=== PATIENT | male | born 1985 | race Caucasian/White ===

== ENCOUNTER 2020-11-12 17:51 | Emergency (ER) | payer OTHER, SELFPAY ==
[2020-11-12 18:07] VITALS: BP 136/66; PULSE 108; RESP 16; TEMP 37; O2SAT 99; BMI 24.3
--- NOTE | 2020-11-12 18:23 | CTR_ITS ---
PROCEDURE INFORMATION: Exam: CT Abdomen And Pelvis With Contrast Exam date and time: 11/12/2020 6:41 PM Age: 35 years old Clinical indication: Abdominal pain; Other: Bilat flank pain, testicular pain, ruq pain; Prior surgery; Surgery type: Umbilical hernia TECHNIQUE: Imaging protocol: Computed tomography of the abdomen and pelvis with contrast. Axial, coronal and sagittal reformatted images were created and reviewed. Radiation optimization: All CT scans at this facility use at least one of these dose optimization techniques: automated exposure control; mA and/or kV adjustment per patient size (includes targeted exams where dose is matched to clinical indication); or iterative reconstruction. Contrast material: OMNI 300; Contrast volume: 95 ml; Contrast route: INTRAVENOUS (IV); COMPARISON: No relevant prior studies available. RADIATION DOSE METRICS: Total DLP (mGy-cm): 378.57 FINDINGS: Liver: Unremarkable. Gallbladder and bile ducts: No radiodense gallstones. No biliary ductal dilatation. Pancreas: Unremarkable. Spleen: Unremarkable. Adrenal glands: Normal. No mass. Kidneys and ureters: No mass. No radiodense calculi. No hydronephrosis. Stomach and bowel: No bowel wall thickening. No obstruction. No pneumatosis. Appendix: Normal. Intraperitoneal space: No free fluid. No organized fluid collection. No free air. Vasculature: Unremarkable. No aneurysm. Lymph nodes: No pathologically enlarged lymph nodes. Urinary bladder: Unremarkable as visualized. Reproductive: Unremarkable. Bones/joints: No acute osseous abnormality. Soft tissues: Unremarkable. CT/CT abdomen pelvis w con* [id number] IMPRESSION: No CT evidence of acute intra-abdominal or pelvic pathology. Radiation Dose CTDIVOL = (mGy): DLP = 378.57 (mGy-cm)
--- NOTE | 2020-11-12 18:25 | ED_ITS ---
HPI - Abdominal Pain General: Chief Complaint: Abdominal Pain Stated Complaint: abd, flank, testicle pain Time Seen by Provider: 11/12/20 18:17 History of Present Illness: HPI narrative: The patient is a 35-year-old male who has been being seen for the past 2 weeks for lower back pain bilaterally. Over the past 2 days the pain has been focused in his right upper quadrant and underneath his right rib radiating to his groin bilaterally. He says he went to see his primary care physician Dr. Bonner earlier today and was severely tender in his right upper quadrant and told to come to the ER for evaluation. He is taken no medications for this MD elicited complaint: abdominal pain Onset (ago): day(s) (2) Pain Consistency: constant Location: Diffuse Severity: moderate Quality: cramping Exacerbating factors: nothing Associated Symptoms: Reports nausea Review of Systems General: Reports: 10 or more systems reviewed and unremarkable except in HPI and below Const: Denies: fatigue Eyes: Denies: change in vision, blurry vision or eye redness ENMT: Denies: throat pain, swelling of lips/tongue, ear or mastoid pain or nasal congestion Card: Denies: chest pain, palpitations, irregular heart rhythm, edema, dyspnea on exertion or orthopnea Resp: Denies: dyspnea, productive cough or non-productive cough GI: Reports: abdominal pain and nausea : Denies: flank pain, urinary frequency or urinary urgency Musc: Denies: neck pain, back pain, extremity pain, joint pain, joint redness, limited range of motion or muscle weakness Skin/Breast: Denies: rash, pruritus, erythema, skin pain or skin tenderness Neuro: Denies: headache(s), numbness in extremities, weakness in extremities, sensory changes, difficulty walking, dizziness, confusion or Slurred speech present Psych: Denies: anxiety or depression Endo: Denies: polyuria All/Imm: Denies: urticaria, throat swelling or tongue swelling Physical Exam Const: COMMON NORMALS: no acute distress, average body habitus, patient oriented x3, no limitations, healthy appearing, alert and well nourished GENERAL APPEARANCE: cooperative, comfortable, well kempt and well developed ORIENTATION/CONSCIOUSNESS: Yes awake, Yes oriented to person, Yes oriented to place and Yes oriented to time HENMT: COMMON NORMALS: normocephalic, external ears normal and Normal external nose present HEAD & SCALP: normal to inspection and normocephalic NOSE: Normal external nose present EXTERNAL EAR: Yes external ears normal MOUTH: Normal oral and palatal mucosa present THROAT: posterior oropharynx normal Eye: COMMON NORMALS: Equal, round and reactive pupils present and EOMs intact bilaterally GENERAL EYE: appearance normal, both eyes and all related structures PUPIL: Yes Equal, round and reactive pupils present Neck/C-Spine: COMMON NORMALS: full ROM, no lymphadenopathy, no meningeal signs and no JVD GENERAL: Yes normal visual inspection Lymph: LYMPHATIC: no lymphadenopathy noted Chest: COMMONS NORMALS: normal inspection of the chest and normal palpation of entire chest wall Resp: COMMON NORMALS: normal respiratory effort, No retractions, No use of accessory muscles, clear to auscultation bilaterally and percussion normal EFFORT & INSPECTION: Yes able to speak in complete sentences AUSCULTATION: clear to auscultation bilaterally PERCUSSION: percussion normal Cardio: COMMON NORMALS: no JVD, regular rate, regular rhythm, S1 normal heart sound present, S2 normal heart sound present and Peripheral pulses 2+ throughout RATE: regular rate RHYTHM: regular rhythm HEART SOUNDS: S1 normal heart sound present and S2 normal heart sound present PERIPHERAL PULSES: Peripheral pulses 2+ throughout GI: COMMON NORMALS: Normal to inspection, nondistended, normoactive bowel sounds present, Soft to palpation and no masses INSPECTION: Yes normal to inspection PALPATION: Yes Soft to palpation GI image (male): 1. Right upper quadrant tenderness. Soft. No rebound tenderness. Normal bowel sounds : COMMON NORMALS: Yes no CVA tenderness BLADDER/KIDNEY EXAM: Yes no CVA tenderness OTHER: Mild right testicular discomfort. Normal size. No swelling. no significant epididymal tenderness but mild tenderness diffusely in right testicle. Back/Pelvis: COMMON NORMALS: no CVA tenderness, thoracic and lumbar spine normal to inspection, no thoracic nor lumbar tenderness and thoraco-lumbar ROM normal Extremity: COMMON NORMALS: normal to inspection, full ROM, capillary refill normal, no joint enlargement and no pedal edema GENERAL: Yes normal exam except as noted Neuro: COMMON NORMALS: patient oriented x3, CN's II-XII intact bilaterally, moves all extremities, no focal motor deficits, no sensory deficits noted and gait normal SENSORIUM/ORIENTATION: Yes alert, Yes oriented to person, Yes oriented to place and Yes oriented to time MENINGEAL SIGNS: Yes no meningeal signs Psych: COMMON NORMALS: mental status grossly normal, Normal thought process present, cooperative, normal affect and speech normal APPEARANCE: Yes well kempt ATTITUDE: Yes calm SPEECH: Yes normal speech THOUGHT PROCESS: Normal thought process present Skin: COMMON NORMALS: no rashes or lesions noted GENERAL SKIN EXAM: no rashes or lesions noted Course Vital Signs: Vital signs: Vital Signs Temperature 98.6 F 11/12/20 18:07 Pulse Rate 100 11/12/20 21:15 Respiratory Rate 16 11/12/20 21:15 Blood Pressure 151/94 11/12/20 21:15 Pulse Oximetry 95 11/12/20 21:15 MDM - Abdominal Pain MDM Narrative: Medical decision making narrative: The patient has right upper quadrant pain radiating to his right groin. CT abdomen pelvis, and right upper quadrant ultrasound were negative for stones. Discussed with him to follow-up with his doctor next week and get a HIDA scan ordered. His right testicle could represent an STI or just a mild ache. He was tested for gonorrhea and chlamydia and treated empirically. He will be discharged with doxycycline for a potential orchitis. Follow-up with medical records for the results next week and the ER with worsening symptoms for any reason. Lab Data: Labs: Lab Results 11/12/20 11/12/20 11/12/20 Range/Units 19:00 19:08 19:08 WBC 10.4 H (4.0-10.0) 10^3/ uL RBC 4.58 (4.1-5.3) 10^6/u L Hgb 14.0 (11.7-16.6) g/dL Hct 42.7 (42.0-52.0) % MCV 93.2 (80-94) fL MCH 30.6 (28.0-34.0) pg MCHC 32.8 (30.0-36.0) g/dL RDW 11.9 L (12.1-15.1) % Plt Count 302 (130-400) 10^3/c mm MPV 9.8 (7.4-10.4) fL Neut % (Auto) 67.0 % Lymph % (Auto) 20.9 % Wise % (Auto) 7.3 % Eos % (Auto) 3.5 % Baso % (Auto) 0.9 % Neut # (Auto) 7.00 (1.8-7.7) 10^3/u L Lymph # (Auto) 2.2 (0.8-4.8) 10^3/u L Wise # (Auto) 0.8 (0.2-0.9) 10^3/u L Eos # (Auto) 0.4 (0.0-0.8) 10^3/u L Baso # (Auto) 0.1 (0.0-0.1) 10^3/u L Nucleated RBC % (a uto) 0 % Nucleated RBCs # 0.0 /100WBC Sodium 137 (136-145) mmol/L Potassium 3.7 (3.5-5.1) mmol/L Chloride 100 (98-107) mmol/L Carbon Dioxide 27 (22-29) mmol/L Anion Gap 13.7 (5-19) BUN 17 (6-20) mg/dL Creatinine 1.1 (0.7-1.2) mg/dL GFR Calculation 77.1 L (90-130) mL/min Glucose 106 (65-115) mg/dL Calculated Osmolal ity 286 (285-295) mOsm/k g Calcium 9.0 (8.5-10.5) mg/dL Total Bilirubin 0.3 (0.15-1.2) mg/dL AST 22 (0-40) U/L ALT 18 (0-41) U/L Alkaline Phosphata se 40 (40-130) IU/L Total Protein 7.5 (6.6-8.7) g/dL Albumin 4.5 (3.5-5.2) g/dL Globulin 3.0 (1.3-4.6) g/dL Lipase 21 (13-60) U/L Urine Color Yellow (Yellow) Urine Appearance Clear (CLEAR) Urine pH 6.5 (5-7) Ur Specific Gravit y 1.010 (1.005-1.030) Urine Protein Neg (Negative) Urine Glucose (UA) Norm (Normal) Urine Ketones Negative (Negative) Urine Blood Neg (Negative) Urine Nitrate Negative (Negative) Urine Bilirubin Neg (Negative) Urine Urobilinogen Norm (Negative) mg/dL Ur Leukocyte Emelyn ase Negative (Negative) Discharge Plan Discharge Patient Disposition: Home Clinical Impression: Abdominal pain, Pain in right testicle Condition: Stable Prescriptions: New doxycycline hyclate 100 mg capsule 100 mg PO Q12H 10 Days Qty: 20 RF: 0 Discharge Orders: Discharge ED (Routine); Ordered 11/12/20 Ordered By: Deepak Peterson Referrals: Carlos Johnston DO [Primary Care Provider] - Discharge Diet: Advance as tolerated Discharge Activity: Resume usual activity Patient Instructions: Testicle Pain (ED), Abdominal Pain (ED), Opioid Safety Activity Restrictions/Additional Instructions: The cause of your belly pain is unclear but it is located where your gallbladder is. CAT scan and ultrasound were negative for gallstones. Please follow-up with your doctor in a couple days to discuss a HIDA scan and try to eat foods with low fatty content. Return to the ER with worsening symptoms. Ultrasound of your testicle was also normal. There is a small chance of an infection and we will be giving you antibiotics to cover this infection. Please take them and call medical records for the results mid next week and return to the ER with worsening symptoms. Coding Level of Care Code ED Exchange Mechanic for Lucie Julien Exam Comprehensive
[2020-11-12] MEDS: iohexol 300 mg/mL 100 mL Btl IV (18:47)
[2020-11-12 19:25] LABS: Add Urine Microscopic? NO
[2020-11-12 19:30] LABS: Basophils # 0.1 10^3/uL (0.0-0.1); Basophils % 0.9 %; Eosinophils # 0.4 10^3/uL (0.0-0.8); Eosinophils % 3.5 %; Hematocrit 42.7 % (42.0-52.0); Lymphocytes # 2.2 10^3/uL (0.8-4.8); Lymphocytes % 20.9 %; Mean Corpuscular HGB Conc 32.8 g/dL (30.0-36.0); Mean Corpuscular Hemoglobin 30.6 pg (28.0-34.0); Mean Corpuscular Volume 93.2 fL (80-94); Mean Platelet Volume 9.8 fL (7.4-10.4); Monocytes # 0.8 10^3/uL (0.2-0.9); Monocytes % 7.3 %; Nucleated Red Blood Cells % 0 %; Platelet Count 302 10^3/cmm (130-400); Red Blood Count 4.58 10^6/uL (4.1-5.3); Red Cell Distribution Width 11.9 % (12.1-15.1); White Blood Count 10.4 10^3/uL (4.0-10.0)
--- NOTE | 2020-11-12 19:34 | US_ITS ---
WS: [id number] RIGHT UPPER QUADRANT ULTRASOUND HISTORY: ruq abd pain COMPARISON: None available. Liver: 11.7 cm in length. Normal size liver. No bile duct dilatation or mass. Gallbladder: Normally distended gallbladder with no stones or wall thickening. CBD: 0.5 cm Pancreas: Normal size and echogenicity. Right kidney: 10.4 cm in length. Normal size and echogenicity. No hydronephrosis or mass. Aorta and IVC: Unremarkable abdominal aorta and IVC. No ascites. US/US abdomen limited [id number] IMPRESSION: Normal RIGHT upper quadrant ultrasound.
[2020-11-12 19:36] LABS: Bilirubin Urine Neg (Negative); Blood Urine Neg (Negative); Glucose Urine UA Norm (Normal); Ketones Urine Negative (Negative); Leukocyte Esterase Urine Negative (Negative); Nitrate Urine Negative (Negative); Protein Urine Neg (Negative); Urine Appearance Clear (CLEAR); Urine Color Yellow (Yellow); Urobilinogen Urine Norm (Negative); pH Urine 6.5 (5-7)
[2020-11-12 20:00] LABS: Alanine Aminotransferase 18 U/L (0-41); Albumin Level 4.5 g/dL (3.5-5.2); Alkaline Phosphatase 40 IU/L (40-130); Anion Gap 13.7 (5-19); Aspartate Amino Transferase 22 U/L (0-40); Blood Urea Nitrogen 17 mg/dL (6-20); Carbon Dioxide 27 mmol/L (22-29); Chloride 100 mmol/L (98-107); Glomerular Filtration Rate 77.1 mL/min (90-130); Glucose 106 mg/dL (65-115); Lipase 21 U/L (13-60); Osmolality Calculated 286 mOsm/kg (285-295); Potassium 3.7 mmol/L (3.5-5.1); Sodium 137 mmol/L (136-145); Total Bilirubin 0.3 mg/dL (0.15-1.2); Total Protein 7.5 g/dL (6.6-8.7)
--- NOTE | 2020-11-12 20:14 | US_ITS ---
WS: [id number] TESTICULAR ULTRASOUND HISTORY: r/o torsion COMPARISON: None available. TECHNIQUE: Real-time and color Doppler imaging or utilized to perform a testicular ultrasound. Right testicle: 5.0 cm x 2.9 cm x 2.2 cm. Normal size and echogenicity. No mass or torsion. Normal color Doppler is present throughout. Systolic and diastolic velocities are both present. No significant hydrocele. Right epididymis: Normal epididymis with no increased vascularity. Left testicle: 5.1 cm x 3.1 cm x 2.3 cm. Normal size and echogenicity. No mass or torsion. Normal color Doppler is present throughout. Systolic and diastolic velocities are both present. No significant hydrocele. Left epididymis: Normal epididymis with no increased vascularity. US/US scrotum [id number] IMPRESSION: NORMAL TESTICULAR ULTRASOUND.
[2020-11-12] MEDS: ondansetron 2 mg/ML SDV 2 mL 4 MG IVP (21:02)
[2020-11-12] MEDS: azithromycin 250 mg Tablet 1000 MG PO (21:03)
[2020-11-12] MEDS: ketorolac 30 mg/mL INJ 15 MG IVP (21:03)
[2020-11-12 21:15] VITALS: BP 151/94; PULSE 100; RESP 16; O2SAT 95
== END 2020-11-12 21:15 | disposition home or self-care (01) ==
PROVIDERS: Emergency Provider Family Medicine; PCP Electrodiagnostic Medicine
DX: R10.9 Unspecified abdominal pain (principal); N50.811 Right testicular pain
CPT/HCPCS: 74177; 76705; 76870; 80053; 81003; 83690; 85025; 87491; 87591; 96374; 96375; 99283; J0696; J1885; J2405; Q0144; Q9967

== ENCOUNTER 2022-05-30 08:10 | Emergency (ER) | payer OTHER, SELFPAY ==
[2022-05-30 08:14] VITALS: BP 133/75; PULSE 104; RESP 18; TEMP 37.4; O2SAT 96; BMI 24.3
--- NOTE | 2022-05-30 08:34 | ED_ITS ---
HPI - Wound/Laceration General: Chief Complaint: Wound/Laceration Stated Complaint: post-vasectomy Time Seen by Provider: 05/30/22 08:26 History of Present Illness: 37-year-old male 3 days status post vasectomy. Patient had vasectomy done in the office 3 days ago he noticed some variation in appearance on right compared to left has some discomfort there. No hematuria. Moderate discomfort. Onset (ago): hour(s) Location: genitals Review of Systems : Denies: flank pain, difficulty urinating, dysuria, urinary frequency, urinary urgency or hematuria PFSH ED PFSH: Medical History (Updated 04/29/22 @ 09:23 by Nicho Layne DO) Bilateral inguinal hernia Bloating Surgical History (Updated 05/30/22 @ 08:40 by Eber Hidalgo DO) Hx of hernia repair 2015 at [facility] [place] with Dr. Tapia/alejandrinabilical No pertinent past surgical history Social History Smoking and tobacco status: current every day smoker (vape no tobacco) e- cigarettes Alcohol intake: former Physical Exam : OTHER: Single prescription suture at incision site in the right upper scrotum. No sign of infection there is some inversion of skin edges. No drainage no palpable scrotal masses. Course Vital Signs: Vital signs: Vital Signs Temperature 99.3 F 05/30/22 08:14 Pulse Rate 104 H 05/30/22 08:14 Respiratory Rate 18 05/30/22 08:14 Blood Pressure 133/75 05/30/22 08:14 Pulse Oximetry 96 05/30/22 08:14 Oxygen Delivery Me thod 05/30/22 08:14 MDM - Wound/Laceration Medical Decision Making No concern for hematoma at this time on exam. Patient does have some postop discomfort and thinks some of it may be from suture. Advise follow-up with surgeon who performed a vasectomy tomorrow. Give diclofenac neck to use as needed. Discharge Plan Discharge Patient Disposition: Home Clinical Impression: S/P vasectomy Condition: Stable Prescriptions: New diclofenac sodium 75 mg tablet,delayed release (DR/EC) 75 mg PO Q12H PRN (Reason: pain) Qty: 20 0RF Discharge Orders: Discharge ED (Routine); Ordered 05/30/22 Ordered By: Eber Hidalgo Referrals: Odin Bonner MD [Primary Care Provider] - Patient Instructions: Opioid Safety Activity Restrictions/Additional Instructions: Follow-up with Dr. Mcarthur at his office tomorrow Coding Level of Care Code ED Fire Sprinkler Apparatus Inspector for Lucie Julien
== END 2022-05-30 08:52 | disposition home or self-care (01) ==
PROVIDERS: Emergency Provider Family Medicine; PCP Family Medicine
DX: Z03.89 Encounter for observation for other suspected diseases and conditions ruled out (principal); Z98.52 Vasectomy status; F17.290 Nicotine dependence, other tobacco product, uncomplicated
CPT/HCPCS: 99283

== ENCOUNTER 2022-06-06 05:55 | Day surgery (SDC) | payer OTHER, SELFPAY ==
[2022-06-03 13:31] VITALS: BMI 24.1
[2022-06-06] VITALS (9 sets, daily range): BP systolic 109–129; BP diastolic 64–81; PULSE 5–87; RESP 13–19; TEMP 36.3–37.1; O2SAT 96–100
--- NOTE | 2022-06-06 06:20 | ANES.PREANE2 ---
Pre-Anesthetic Assessment Height/Weight: Height 1.7 m Weight 69.853 kg Temp Pulse Resp BP Pulse Ox O2 Del Method 98.7 F 78 18 123/81 99 06/06/22 06:14 06/06/22 06:14 06/06/22 06:14 06/06/22 06:14 06/06/22 06:14 06/06/22 06:14 Preop Diagnosis: Bilateral inguinal hernias Operation Date: 06/06/22 07:00 Proposed Procedures p lap poss open Bilateral inguinal hernia with mesh 78064 2x,K40.20(Bilateral) - Nicho Layne DO Familial anesthetic complications: PONV Was Beta Aleksandar taken within 24 hours: N/A Was Clonidine taken within 24 hours: N/A Social No alcohol and No tobacco Exam alert, oriented x 3, clear to auscultation bilaterally and regular rate & rhythm Airway Submandibular: within normal limits Cervical ROM: within normal limits Mallampati: Class I Dentition: full History/ROS No significant complaints Pulmonary None reported CV/HEM None reported None reported Hepatic None reported GI None reported Metabolic None reported Musc/skel Inguinal b/l hernia Neuropsych None reported Anesthetic Plan ASA status: 1 Anesthesia: Anesthesia Evaluation and General Other: We discussed risk and benefits of general anesthesia including PONV, sore throat (sometimes severe), corneal abrasion, positioning and peripheral nerve injuries, life threatening allergic reaction, post operative ICU admission requiring prolonged intubation, stroke, heart attack, , and rare incidences of recall. Patient consents to proceed with general anesthesia. Risk of > 500 ml blood loss (7ml/kg in children): No Medications/Allergies Home Medications Medication Instructions Recorded Confirmed Last Taken Type diclofenac sodium 75 mg 75 mg PO Q12H PRN pain #20 tabs 05/30/22 06/03/22 Unknown Rx tablet,delayed release Allergies Allergy/AdvReac Type Severity Reaction Status Date / Time No Known Allergies Allergy Verified 06/03/22 13:19 [facility] Medical History Bilateral inguinal hernia Bloating Surgical History [place] [facility] [place]stella No pertinent past surgical history Social History Smoking and tobacco status: current every day smoker (vape no tobacco) e-cigarettes Alcohol intake: former Data Anesthesia Cardiac Studies: No Data to Display
[2022-06-06] MEDS: sodium chloride 0.9% 1,000 ML 30 ML IV (06:22)
[2022-06-06] MEDS: scopolamine 1.5 Patch 1 PATCH TRANSDERMA (06:30)
--- NOTE | 2022-06-06 06:50 | P.HP_ITS ---
Providers/Chief Complaint Primary Care Provider: Odin Bonner MD Chief Complaint: bilateral inguinal hernia / estimate is $0 History of Present Illness Tavo Sun is a 37 year old male here for laparoscopic repair of bilateral inguinal hernias with mesh Medications/Allergies Home Medications Medication Instructions Recorded Confirmed Last Taken Type diclofenac sodium 75 mg 75 mg PO Q12H PRN pain #20 tabs 05/30/22 06/03/22 Unknown Rx tablet,delayed release Allergies Allergy/AdvReac Type Severity Reaction Status Date / Time No Known Allergies Allergy Verified 06/03/22 13:19 PFSH Acute PFSH: Medical History Bilateral inguinal hernia Bloating Surgical History Hx of hernia repair 2015 at [facility] [place] [place] with Dr. Tapia/alejandrinabilical No pertinent past surgical history Social History Smoking and tobacco status: current every day smoker (vape no tobacco) e- cigarettes Alcohol intake: former Vitals/I&O/Wt Last Vital Signs Temp 98.7 F 06/06/22 06:14 Pulse 78 06/06/22 06:14 Resp 18 06/06/22 06:14 BP 123/81 06/06/22 06:14 Pulse Ox 99 06/06/22 06:14 O2 Del Method 06/06/22 06:17 A&P Assessment and plan (1) Bilateral inguinal hernia: Status: Acute Plan Laparoscopic repair of bilateral inguinal hernias with mesh. The risks and benefits have been explained and documented Attestations Medical Necessity Statement*: Patient will go home Coding Level of Care Code Acute Ecommerce Merchandising Manager for g Fwd Diagnoses Bilateral inguinal hernia K40.20
[2022-06-06] MEDS: diphenhydrAMINE 50 mg/mL SDV 1mL 12.5 MG IVP (06:53)
[2022-06-06] MEDS: ceFAZolin 2,000 MG in sodium chloride 0.9% (plus) 50 ML 100 MG IV (07:00)
--- NOTE | 2022-06-06 08:04 | P.OP_ITS ---
Operative Report Date of procedure: June 06, 2022 Pre-op diagnosis: Preop Diagnosis Bilateral inguinal hernias Post-op diagnosis: same Procedure done: Laparoscopic repair bilateral inguinal hernias with mesh Implants: Left and right large 3D max Bard mesh Surgeon: Dr. Nicho Layne DO Anesthesia: General Estimated blood loss (mL): 5 Complications: None apparent Brief History: This is a very pleasant 37-year-old gentleman who came in to the office with bilateral inguinal hernias. Laparoscopic repair of bilateral inguinal hernias with mesh was indicated. The risks and benefits were explained and documented. Procedure: Patient was wheeled into the operative room and placed on the OR table in a supine position. Abdomen was inspected prepped and draped in usual sterile fashion. Time-out was performed and all present were in agreement. A 15 blade scalpel was used to make 1.2 centimeter incision infraumbilically. Combination of sharp and blunt dissection was performed down to the anterior rectus sheath which was opened sharply. The dissecting balloon was then inserted into the space of Retzius and blown up. We put the camera into the port and identified that we were in the correct space. I then placed 2 5 millimeter trocars suprapubically in the midline. I then used endokitners to bluntly dissect in the space of Retzius out laterally. An indirect inguinal hernia was identified on the right. Blunt dissection was performed to dissect down the hernia sac until the vas deferens dove medially. A large right inguinal mesh was then placed into the space of Retzius. The mesh was unrolled and tacked once medially at the pubic bone. The mesh laid out nicely over the spermatic cord. An indirect inguinal hernia was identified on the left. Blunt dissection was per formed to dissect down the hernia sac until the vas deferens dove medially. A large left inguinal mesh was then placed into the space of Retzius. The mesh was unrolled and tacked once medially at the pubic bone. The mesh laid out nicely over the spermatic cord. I watched the hernia sacs remain in place as insufflation was removed. Incisions were closed with 4 O Vicryl in a subcuticular interrupted fashion. Skin glue was applied. Patient tolerated the procedure well.
[2022-06-06] MEDS: HYDROcodone-acetaminophen 7.5-325 mg Tablet 1 TAB PO (09:07)
--- NOTE | 2022-06-06 09:43 | ANE.PACU2 ---
Inpatient post-anesthesia follow up: Airway intact: Yes Vital signs: Temperature 97.7 F Pulse Rate 5 Respiratory Rate 18 Blood Pressure 122/73 Pulse Oximetry 99 Oxygen Delivery Me thod Room Air Oxygen Flow Rate 6 Fraction of Inspir ed Oxygen Hydration adequate: Yes Nausea and vomiting: No Pain level: 4 Mental status: Baseline
== END 2022-06-06 09:30 | disposition home or self-care (01) ==
PROVIDERS: PCP Family Medicine; Visit Provider Surgery
PROC: (CPT 49650; principal; 2022-06-06 07:00)
DX: K40.20 Bilateral inguinal hernia, without obstruction or gangrene, not specified as recurrent (principal); F17.290 Nicotine dependence, other tobacco product, uncomplicated
CPT/HCPCS: 49650; 51702; C1781; J1100; J1200; J2250; J2405; J2704; J2710; J3010; J3490; J7030

== ENCOUNTER 2022-06-15 05:52 | Day surgery (SDC) | payer OTHER, SELFPAY ==
--- NOTE | 2022-06-15 05:59 | W.PM.OPSUD ---
Surgery/Procedure H&P Update DATE OF PROCEDURE: June 15, 2022 DATE H&P PERFORMED: 06/06/22 PREOP DIAGNOSIS: Epigastric pain PLANNED PROCEDURE: Operation Date: 06/15/22 07:30 Proposed Procedures p EGD 23152,R10.13,R14(Not Applicable) - Nicho Layne DO
[2022-06-15 06:19] VITALS: BMI 24.3
--- NOTE | 2022-06-15 07:04 | P.ANESASSM_ITS ---
Pre-Anesthetic Assessment Height/Weight: Height 1.7 m Weight 70.307 kg Preop Diagnosis: Epigastric pain Operation Date: 06/15/22 07:30 Proposed Procedures p EGD [id number],R10.13,R14(Not Applicable) - Nicho Layne, DO Was Beta Aleksandar taken within 24 hours: N/A Was Clonidine taken within 24 hours: N/A Last intake: Intake Last Liquid Date 06/14/22 Last Liquid Time 20:30 Last Solid Date 06/14/22 Last Solid Time 20:30 Social Tobacco (vape) Exam alert, oriented x 3, clear to auscultation bilaterally and regular rate & rhythm Airway Submandibular: within normal limits Cervical ROM: within normal limits Mallampati: Class II Dentition: full Pulmonary None reported CV/HEM None reported None reported Hepatic None reported GI Gastroesophageal Reflux Disease Metabolic None reported Musc/skel None reported Neuropsych Anxiety Anesthetic Plan ASA status: 2 Anesthesia: MAC Risk of > 500 ml blood loss (7ml/kg in children): No Medications/Allergies Home Medications Medication Instructions Recorded Confirmed Last Taken Type hydrocodone 7.5 mg-acetaminophen 1 tab PO Q6H PRN pain #20 tabs 06/06/22 06/15/22 06/10/22 Rx 325 mg tablet Allergies Allergy/AdvReac Type Severity Reaction Status Date / Time No Known Allergies Allergy Verified 06/03/22 13:19 [facility] Anesthesia Medical History (Updated 06/14/22 @ 21:33 by Odin Bonner MD) Bilateral inguinal hernia Bloating Surgical History (Updated 06/14/22 @ 21:31 by Odin Bonner MD) Hx of hernia repair 2014 at [facility] [place]. Tapia/misti Hx of vasectomy Dr Mcarthur - 2021 No pertinent past surgical history Social History Smoking and tobacco status: current every day smoker (vape no tobacco) e- cigarettes Alcohol intake: former Data Anesthesia Cardiac Studies: No Data to Display
[2022-06-15] MEDS: sodium chloride 0.9% 1,000 ML 30 ML IV (07:15)
[2022-06-15 07:52] VITALS: BP 103/62; PULSE 80; RESP 12; TEMP 36.7; O2SAT 96
--- NOTE | 2022-06-15 07:57 | ANE.PACU2 ---
Inpatient post-anesthesia follow up: Airway intact: Yes Vital signs: Temperature 98.1 F Pulse Rate 80 Respiratory Rate 12 Blood Pressure 103/62 Pulse Oximetry 96 Oxygen Delivery Me thod Room Air Oxygen Flow Rate Fraction of Inspir ed Oxygen Hydration adequate: Yes Nausea and vomiting: No Pain level: 1 Mental status: Baseline
[2022-06-15 08:05] VITALS: BP 114/65; PULSE 81; RESP 16; O2SAT 98
--- NOTE | 2022-06-15 15:04 | ANE.PACU2 ---
Inpatient post-anesthesia follow up: Airway intact: Yes Vital signs: Temperature 98.1 F Pulse Rate 81 Respiratory Rate 16 Blood Pressure 114/65 Pulse Oximetry 98 Oxygen Delivery Me thod Room Air Oxygen Flow Rate Fraction of Inspir ed Oxygen Hydration adequate: Yes Nausea and vomiting: No Pain level: 1 Mental status: Baseline
== END 2022-06-15 08:40 | disposition home or self-care (01) ==
PROVIDERS: PCP Family Medicine; Visit Provider Surgery
PROC: 0DJ08ZZ Inspection of Upper Intestinal Tract, Via Natural or Artificial Opening Endoscopic (ICD-10-PCS; CPT 43235; principal; 2022-06-15 07:30)
DX: R10.13 Epigastric pain (principal); K29.70 Gastritis, unspecified, without bleeding; K21.9 Gastro-esophageal reflux disease without esophagitis; F17.290 Nicotine dependence, other tobacco product, uncomplicated
CPT/HCPCS: 43239; 88305; J2704; J7030

== ENCOUNTER 2022-06-30 08:23 | Day surgery (SDC) | payer OTHER, SELFPAY ==
[2022-06-29 16:12] VITALS: BMI 24.3
[2022-06-30] VITALS (8 sets, daily range): BP systolic 106–136; BP diastolic 63–87; PULSE 66–102; RESP 16–20; TEMP 36.2–36.7; O2SAT 97–99
[2022-06-30] MEDS: scopolamine 1.5 Patch 1 PATCH TRANSDERMA (08:41)
[2022-06-30] MEDS: sodium chloride 0.9% 1,000 ML 30 ML IV (08:43)
--- NOTE | 2022-06-30 09:03 | W.PM.OPSUD ---
Surgery/Procedure H&P Update DATE OF PROCEDURE: June 30, 2022 DATE H&P PERFORMED: 06/21/22 PREOP DIAGNOSIS: Right vasectomy complication PLANNED PROCEDURE: Operation Date: 06/30/22 09:50 Proposed Procedures p revision of right vasectomy 61180,N50.82(Not Applicable) - Nicho Layne DO
--- NOTE | 2022-06-30 09:28 | P.ANESASSM_ITS ---
Pre-Anesthetic Assessment Height/Weight: Height 1.7 m Weight 70.307 kg Temp Pulse Resp BP Pulse Ox O2 Del Method 97.2 F L 102 H 18 136/87 97 06/30/22 08:37 06/30/22 08:37 06/30/22 08:37 06/30/22 08:37 06/30/22 08:37 06/30/22 08:37 Preop Diagnosis: Right vasectomy complication Operation Date: 06/30/22 09:50 Proposed Procedures p revision of right vasectomy 63009,N50.82(Not Applicable) - Nicho Layne DO Familial anesthetic complications: none Was Beta Aleksandar taken within 24 hours: N/A Was Clonidine taken within 24 hours: N/A Last intake: Intake Last Liquid Date 06/29/22 Last Liquid Time 20:00 Last Solid Date 06/29/22 Last Solid Time 18:30 Social Tobacco (vapes) and No alcohol Exam alert, oriented x 3, clear to auscultation bilaterally and regular rate & rhythm Airway Submandibular: within normal limits Cervical ROM: within normal limits Mallampati: Class II Dentition: full GI Gastroesophageal Reflux Disease Anesthetic Plan ASA status: 2 Anesthesia: General Medications/Allergies Home Medications Medication Instructions Recorded Confirmed Last Taken Type hydrocodone 7.5 mg-acetaminophen 1 tab PO Q6H PRN pain #20 tabs 06/06/22 06/30/22 06/10/22 Rx 325 mg tablet pantoprazole 40 mg tablet,delayed 40 mg PO BID 6 weeks #84 tabs 06/15/22 06/30/22 06/29/22 Rx release (Protonix) insulin syringe-needle U-100 1 mL #4 ea 06/21/22 06/29/22 Unknown Rx 25 x 1 (BD Insulin Syringe) testosterone cypionate 200 mg/mL 100 mg (0.5 mL) IM Q14D #1 mL 06/21/22 06/30/22 06/30/22 06:45 Rx intramuscular oil Allergies Allergy/AdvReac Type Severity Reaction Status Date / Time No Known Allergies Allergy Verified 06/30/22 08:31 Current Medications Generic Name Dose Route Start Last Admin Trade Name Freq PRN Reason Stop Dose Admin Sodium Chloride 1,000 mls @ 30 mls/hr 06/30/22 08:30 06/30/22 08:43 Sodium Chloride 0.9% IV 07/01/22 08:29 30 mls/hr .Q24H MANUEL Administration PFSH Anesthesia Medical History (Updated 06/21/22 @ 09:10 by Nicho Layne DO) Bilateral inguinal hernia Bloating Surgical History (Updated 06/21/22 @ 09:10 by Nicho Layne DO) Hx of hernia repair 2014 at [facility] [place] with Dr. Tapia/immisti Hx of vasectomy Dr Mcarthur - 2021 No pertinent past surgical history S/P bilateral inguinal hernia repair Social History Smoking and tobacco status: current every day smoker e-cigarettes Alcohol intake: former Data Anesthesia Cardiac Studies: No Data to Display
[2022-06-30] MEDS: ceFAZolin 2,000 MG in sodium chloride 0.9% (plus) 50 ML 100 MG IV (10:55)
--- NOTE | 2022-06-30 11:28 | P.OP_ITS ---
Operative Report Date of procedure: June 30, 2022 Pre-op diagnosis: Preop Diagnosis Right vasectomy complication Post-op diagnosis: same Procedure done: Right vasectomy revision Specimens removed/disposition: Right vas deferens Surgeon: Dr. Nicho Layne DO Anesthesia: General Estimated blood loss (mL): 1 Complications: None apparent Brief History: This is a very pleasant 37-year-old gentleman who is well-known to me. He had a vasectomy by an outside provider which was complicated by the vas deferens being pexied to the scrotum. Right vasectomy revision was indicated. The risks and benefits were explained and documented. Procedure: Patient was wheeled in the OR room and placed on the OR table in supine position. The scrotum was inspected prepped and draped in usual sterile fashio n. LMA was placed by the department of anesthesia. A timeout was performed. All present were in agreement. The right vas deferens was identified and isolated. 2% lidocaine with epinephrine was used to anesthetize the area of the previous incision. A 15 blade scalpel was then used to make a 1.5 cm incision over the area of concern. A combination of blunt dissection and Bovie cautery was used to free the vas deferens from the scrotum. A 1 cm section of vas deferens was removed after being ligated proximally and distally with 1-0 silk. There was practically no blood loss. Skin was closed with 4-0 Vicryl in a subcutaneous interrupted fashion. Dermabond was applied. Patient tolerated the procedure well.
--- NOTE | 2022-06-30 14:39 | ANE.PACU2 ---
Inpatient post-anesthesia follow up: Airway intact: Yes Vital signs: Temperature 97.6 F Pulse Rate 82 Respiratory Rate 18 Blood Pressure 126/70 Pulse Oximetry 99 Oxygen Delivery Me thod Room Air Oxygen Flow Rate 6 Fraction of Inspir ed Oxygen Hydration adequate: Yes Nausea and vomiting: No Pain level: 2 Mental status: Baseline
== END 2022-06-30 12:35 | disposition home or self-care (01) ==
PROVIDERS: PCP Family Medicine; Visit Provider Surgery
PROC: (CPT 55250; principal; 2022-06-30 09:40)
DX: N50.82 Scrotal pain (principal)
CPT/HCPCS: 55250; 88302; J1100; J2250; J2405; J2704; J3010; J7030